=== PATIENT | male | born 1970 ===

== ENCOUNTER 2022-12-04 17:51 | Emergency (ER) | payer MEDICAID ==
[~2022-12-04] VITALS: Ht 170.2 cm; Wt 91.0 kg
[2022-12-04 18:10] VITALS: BP 157/98; PULSE 96; RESP 18; TEMP 98; O2SAT 98
== END 2022-12-04 21:11 | disposition left against medical advice (07) ==
LOC: ER 17:51
DX: Z53.21 Procedure and treatment not carried out due to patient leaving prior to being seen by health care provider (principal)
CPT/HCPCS: 99281